=== PATIENT | male | born 1990 | race Caucasian/White ===

== ENCOUNTER 2017-06-05 08:54 | Emergency (ER) | payer BC, OTHER ==
[~2017-06-05] VITALS: Ht 167.6 cm; Wt 85.0 kg
[2017-06-05 09:05] VITALS: BP 149/101; PULSE 80; TEMP 37.1; O2SAT 97; Ht 167.6 cm; Wt 85.0 kg
[2017-06-05] MEDS ORDERED: CEPH-571 PO (09:33)
--- NOTE | 2017-06-05 16:08 | EMERGENCY ROOM VISIT NOTE ---
History First contact with patient: 09:16 Chief Complaint: WOUND INFECTION Stated Complaint: INFLAMMED CYST ON BACK Nursing Triage Summary: Pt states, "I have a bump on the middle back that I have known about for awhile. Yesterday it started to get more painful. When I sit back in a chair it hurts. I think it's a cyst and was hoping to get it removed." Denies drainage. History of Present Illness The patient is a 27 year old male who presents to the Emergency Room with complaints of a lump in the middle of his back. The patient reports that the lump has been there for approximately 1 year. It started to become painful yesterday when he sat back in a chair and bumped the lesion. The patient presents to emergency department for further evaluation. 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 The patient denies any prior history of similar skin lesions or infections. He rates his discomfort a 2 out of 10. Review of Systems 10 system review was performed and was negative except for pertinent positives and negatives as indicated in history of present illness Past Medical/Surgical History Medical Problems: (1) No significant past medical history Surgical Problems: (1) No history of previous surgery Family History FH: cancer FH: diabetes mellitus Social History Smoking Status: Never Smoker Alcohol Use: occasionally Marital Status: single Housing Status: lives with roommate Occupation Status: employed Current/Historical Medications Scheduled Cephalexin (Keflex), 1 CAP PO TID Physical Exam Vital Signs Date Time Temp Pulse Resp B/P (MAP) Pulse Ox O2 Delivery O2 Flow Rate FiO2 18 09:05 37.1 80 18 149/101 97 Room Air Physical Exam CONSTITUTIONAL: Healthy and well nourished. Alert and oriented X 3 with positive affect. Patient does not appear in any acute distress. HEENT: Normocephalic, atraumatic. Pupils equal, round and reactive. NECK: Full active range of motion without discomfort. MUSCULOSKELETAL: Full range of motion of all joints without discomfort. Vision has no tenderness to palpation through the central thoracolumbar spine or paraspinous muscles. INTEGUMENTARY: Examination of the central back shows a marble sized, mobile and solid lesion. No overriding erythema or fluctuance noted. The area is mildly tender to palpation. There is no drainage. NEUROLOGIC: No focal neurologic deficits noted. Medical Decision & Procedures ED Course Patient history and physical exam were performed. Nurse's notes were reviewed. The patient was advised that I would be happy to provide a prescription for Keflex to minimize any risk for infection; however, the patient was advised that this is best treated by dermatology as there is currently no drainable abscess at this time. The patient was encouraged to take ibuprofen and Tylenol as needed for pain. He is welcome to return for any significantly worsening size, fluctuance, overriding erythema or other concerning symptoms. The patient was happy with plan of care, voiced understanding of all discharge instructions, and denied any significant pain at that time. Medical Decision Medication Reconcilliation Current Medication List: was personally reviewed by me Blood Pressure Screening Patient's blood pressure: Normal blood pressure Impression Primary Impression: Cyst in back Departure Information Dispostion Home / Self-Care Prescriptions Cephalexin (KEFLEX) 500 Mg Cap 1 CAP PO TID for 7 Days, #21 CAP Prov: Sina Gay PA 06/05/17 Referrals Irving Shook MD Forms HOME CARE DOCUMENTATION FORM, IMPORTANT VISIT INFORMATION Patient Instructions My [facility] Additional Instructions Complete all Keflex antibiotics as prescribed. Follow-up with dermatology (Dr. Shook) for further management of your cyst. Return to the emergency department for any significantly worsening swelling, redness, fever or pain.
== END 2017-06-05 09:15 | disposition home or self-care (01) ==
LOC: C.EDB 08:56 → C.EDC 09:15
DX: L72.9 Follicular cyst of the skin and subcutaneous tissue, unspecified (principal); Z80.9 Family history of malignant neoplasm, unspecified; Z83.3 Family history of diabetes mellitus

== ENCOUNTER 2017-07-30 15:48 | Emergency (ER) | payer BC, OTHER ==
[~2017-07-30] VITALS: Ht 168.9 cm; Wt 83.9 kg
[2017-07-30 15:54] VITALS: TEMP 36.4; Ht 168.9 cm; Wt 83.9 kg
[2017-07-30 15:55] VITALS: O2SAT 100
[2017-07-30] MEDS ORDERED: SODIUM CHLORIDE 0.9% 1000ML 1,000 ML IV STA (15:57)
[2017-07-30] MEDS ORDERED: HYDROmorphone INJ 1 MG/ML SYR IV STA (15:57)
[2017-07-30] MEDS ORDERED: ONDANSETRON INJ 2 MG/ML 2 ML VIAL IV STA (15:57)
[2017-07-30 16:07] LABS: BASO % 0.1 %; BASO ABS # 0.01 K/uL (0-0.2); EOS % 1.3 %; EOS ABS # 0.09 K/uL (0-0.5); HEMATOCRIT 45.2 % (42-52); HEMOGLOBIN 16.8 g/dL (14.0-18.0); IG# 0.02 K/uL (0.00-0.02); LYMPH % 31.1 %; LYMPH ABS # 2.08 K/uL (1.2-3.4); MEAN CELL VOLUME 89.7 fL (80-100); MEAN CORPUSCULAR HEMOGLOBIN 33.3 pg (25-34); MEAN CORPUSCULAR HGB CONC 37.2 g/dl (32-36); MEAN PLATELET VOLUME 10.8 fL (7.4-10.4); MONO % 6.4 %; MONO ABS # 0.43 K/uL (0.11-0.59); NEUT % 60.8 %; NEUT ABS # 4.05 K/uL (1.4-6.5); PLATELET COUNT 149 K/uL (130-400); RED CELL DISTRIBUTION WIDTH CV 12.5 % (11.5-14.5); RED CELL DISTRIBUTION WIDTH SD 40.3 fL (36.4-46.3); WHITE BLOOD COUNT 6.68 K/uL (4.8-10.8)
[2017-07-30 16:11] LABS: ISTAT CREATININE 1.2 mg/dl (0.6-1.3); ISTAT IONIZED CALCIUM 1.13 mmol/l (1.12-1.32); ISTAT POTASSIUM 3.4 mEq/L (3.3-5.0)
[2017-07-30 16:25] LABS: ALBUMIN 4.1 gm/dl (3.4-5.0); CALCIUM 9.7 mg/dl (8.5-10.1); CREATININE 1.36 mg/dl (0.60-1.40); POTASSIUM 3.4 mmol/L (3.5-5.1)
[2017-07-30 16:27] LABS: TOTAL PROTEIN 7.7 gm/dl (6.4-8.2)
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
[2017-07-30] MEDS ORDERED: OPTIRAY 320 IV PRN (16:45)
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
[2017-07-30] MEDS ORDERED: MoRPHine SULFATE 4 MG/ML 1 ML CARP\\VIAL IV STA (17:06)
--- NOTE | 2017-07-30 18:38 | DIAGNOSTIC IMAGING REPORT ---
(TESTICULAR) SCROTUM-CONT HISTORY: Pain b/l testicle pain COMPARISON: None. FINDINGS: Right testis: Maximum dimension 4.0 cm. Slightly heterogeneous. Slight increase in vascular flow. Left testis: Maximum dimension 3.7 cm. Normal vascular flow IMPRESSION: 1. Slight heterogeneity of the right testis with a slight increase in vascular flow. Possibility of mild orchitis should be considered. The above report was generated using voice recognition software. It may contain grammatical, syntax or spelling errors. Electronically signed by: Rik Alonso M.D. 07/30/2017 6:37 PM Dictated Date/Time: 07/30/2017 6:36 PM
[2017-07-30] MEDS ORDERED: MoRPHine SULFATE 10 MG/ML CARP/VIAL IV STA (19:47)
[2017-07-30] MEDS ORDERED: MoRPHine SULFATE 4 MG/ML 1 ML CARP\\VIAL ONE (19:52)
[2017-07-30] MEDS ORDERED: MoRPHine SULFATE 2 MG/ML CARP ONE (19:52)
[2017-07-30 19:55] VITALS: BP 135/95; PULSE 102; O2SAT 95
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
[2017-07-31] MEDS ORDERED: OXYC1TAB3 PO (18:34)
== END 2017-07-30 20:05 | disposition home or self-care (01) ==
LOC: EDBD 15:48 → C.EDB 15:49
DX: R10.31 Right lower quadrant pain (principal); S80.212A Abrasion, left knee, initial encounter; V23.3XXA Person boarding or alighting a motorcycle injured in collision with car, pick-up truck or van, initial encounter; R10.2 Pelvic and perineal pain; N50.811 Right testicular pain; R03.0 Elevated blood-pressure reading, without diagnosis of hypertension

== ENCOUNTER 2017-07-31 16:19 | Emergency (ER) | payer BC, OTHER ==
[~2017-07-31] VITALS: Ht 167.6 cm; Wt 84.3 kg
[2017-07-31 16:24] VITALS: TEMP 36.9; Ht 167.6 cm; Wt 84.3 kg
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
[2017-07-31] MEDS ORDERED: OXYC1TAB3 PO (18:34)
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
[2017-07-31 18:54] VITALS: BP 143/94; PULSE 77; O2SAT 95
== END 2017-07-31 18:50 | disposition home or self-care (01) ==
LOC: C.EDB 16:20
DX: S30.22XA Contusion of scrotum and testes, initial encounter (principal); Z87.828 Personal history of other (healed) physical injury and trauma; V23.4XXA Motorcycle driver injured in collision with car, pick-up truck or van in traffic accident, initial encounter; Y93.89 Activity, other specified; Y99.8 Other external cause status; Z83.3 Family history of diabetes mellitus